=== PATIENT | female | born 1980 | race Hispanic/Latino ===

== ENCOUNTER 2017-11-24 20:25 | Emergency (ER) | payer SELFPAY ==
[2017-11-24 21:34] LABS: #Basophils 0.1 thou/uL (0.0-0.2); #Eosinphils 0.4 thou/uL (0.0-0.7); #Monocytes 0.6 thou/uL (0.11-0.59); #Neutrophils 8.3 thou/uL (1.40-6.50); %Basophils 0.7 % (0.0-1.0); %Eosinophils 2.7 % (0.0-10.0); %Lymphocytes 29.6 % (21.0-51.0); %Monocytes 4.8 % (0.0-10.0); %Neutrophils 62.2 % (42.0-75.0); Mean Corpuscular HGB CONC 34.9 g/dL (32.0-36.0); Mean Corpuscular Hemoglobin 32.3 pg (27.0-31.0); Mean Corpuscular Volume 92.5 fL (78.0-98.0); Mean Platelet Volume 7.1 fL (7.4-10.4); Platelet Count 383 thou/uL (130-400); RBC Distribution Width 12.1 % (11.5-14.5); Red Blood Cell (RBC) Count 4.34 mill/uL (4.20-5.40); White Blood Cell (WBC) Count 13.4 thou/uL (4.8-10.8)
--- NOTE | 2017-11-24 21:41 | RAD ---
SINGLE VIEW OF THE CHEST: 11/24/17 COMPARISON: 01/17/17 HISTORY: Chest pain. FINDINGS: Single view of the chest shows a normal sized cardiomediastinal silhouette. There is no evidence of c onsolidation, mass, or pleural effusion. The bones are unremarkable. IMPRESSION: No evidence of acute cardiopulmonary disease. POS: [facility]
[2017-11-24 21:57] LABS: CKMB 0.9 ng/mL (0-6.6); Troponin I Less than 0.010 ng/mL (< 0.028)
[2017-11-24 22:03] LABS: ALT (SGPT) 80 U/L (8-55); AST (SGOT) 104 U/L (5-34); Albumin 3.9 g/dL (3.5-5.0); Alkaline Phosphatase 105 U/L (40-150); Anion Gap 14 mmol/L (10-20); BUN (Urea Nitrogen) 8 mg/dL (7.0-18.7); Bilirubin, Total 0.4 mg/dL (0.2-1.2); CK (CPK) 86 U/L (29-168); Calc. Creatinine Clearance 0 mL/min (70-130); Calcium 9.4 mg/dL (7.8-10.44); Carbon Dioxide 21 mmol/L (22-29); Chloride 106 mmol/L (98-107); Estimated GFR-MDRD 90; Globulin 3.7 g/dL (2.4-3.5); Glucose 106 mg/dL (70-105); Protein, Total 7.6 g/dL (6.0-8.3); Sodium 137 mmol/L (136-145)
[2017-11-24] MEDS ORDERED: Aspirin 81 mg Enteric Coated Tablet ONE (22:10)
[2017-11-24] MEDS ORDERED: hydrOXYzine 25 MG TAB ONE (23:16)
[2017-11-25 00:14] LABS: Troponin I Less than 0.010 ng/mL (< 0.028)
== END 2017-11-25 00:33 | disposition home or self-care (01) ==
LOC: ERS 20:25
DX: R07.9 Chest pain, unspecified (principal); F41.9 Anxiety disorder, unspecified; Z87.891 Personal history of nicotine dependence
CPT/HCPCS: 36415; 71045; 80053; 82550; 82553; 84484; 85025; 85379; 93005

== ENCOUNTER 2019-07-30 21:02 | Emergency (ER) | payer SELFPAY ==
[2019-07-30] MEDS ORDERED: Lidocaine 2% PF 5 ML VIAL ONE (21:38)
[2019-07-30] MEDS ORDERED: Lidocaine 2% 10 ML INJ ONE (21:40)
== END 2019-07-30 22:06 | disposition home or self-care (01) ==
LOC: ERS 21:02
DX: S00.452A Superficial foreign body of left ear, initial encounter (principal); Z87.891 Personal history of nicotine dependence; W45.8XXA Other foreign body or object entering through skin, initial encounter
CPT/HCPCS: 69200; J2001

== ENCOUNTER 2019-08-28 12:47 | Emergency (ER) | payer OTHER, SELFPAY | END 2019-08-28 13:39 | disposition home or self-care (01) | LOC: ERS 12:47 | DX: U07.1 COVID-19 (principal); F41.9 Anxiety disorder, unspecified; F17.210 Nicotine dependence, cigarettes, uncomplicated | CPT/HCPCS: 87635; 99283; U0003 ==

== ENCOUNTER 2020-09-07 02:10 | Emergency (ER) | payer OTHER, SELFPAY ==
[2020-09-07 02:59] LABS: #Basophils 0.1 thou/uL (0.0-0.2); #Eosinphils 0.3 thou/uL (0.0-0.7); #Monocytes 0.7 thou/uL (0.11-0.59); #Neutrophils 8.2 thou/uL (1.40-6.50); %Basophils 0.6 % (0.0-1.0); %Eosinophils 2.8 % (0.0-10.0); %Lymphocytes 24.3 % (21.0-51.0); %Monocytes 5.9 % (0.0-10.0); %Neutrophils 66.5 % (42.0-75.0); Hemoglobin 12.4 g/dL (12.0-16.0); Mean Corpuscular HGB CONC 34.5 g/dL (32.0-36.0); Mean Corpuscular Hemoglobin 30.9 pg (27.0-31.0); Mean Corpuscular Volume 89.7 fL (78.0-98.0); Mean Platelet Volume 6.4 fL (7.4-10.4); Platelet Count 288 thou/uL (130-400); RBC Distribution Width 14.7 % (11.5-14.5); Red Blood Cell (RBC) Count 4.01 mill/uL (4.20-5.40); White Blood Cell (WBC) Count 12.3 thou/uL (4.8-10.8)
[2020-09-07 03:21] LABS: ALT (SGPT) 32 U/L (8-55); AST (SGOT) 80 U/L (5-34); Albumin 3.2 g/dL (3.5-5.0); Alkaline Phosphatase 124 U/L (40-110); Anion Gap 16 mmol/L (10-20); BUN (Urea Nitrogen) Less than 4 mg/dL (7.0-18.7); Bilirubin, Total 0.5 mg/dL (0.2-1.2); Calc. Creatinine Clearance 0 mL/min (70-130); Calcium 8.1 mg/dL (7.8-10.44); Carbon Dioxide 20 mmol/L (22-29); Chloride 97 mmol/L (98-107); Globulin 3.7 g/dL (2.4-3.5); Glucose 126 mg/dL (70-105); Protein, Total 6.9 g/dL (6.0-8.3); Sodium 130 mmol/L (136-145)
[2020-09-07 03:22] LABS: Acetaminophen Less than 6.0 mcg/mL (10.0-30.0); Alcohol 324 mg/dL (Less than 10); Salicylate Less than 8.0 mg/dL (15.0-30.0)
[2020-09-07 03:29] LABS: Potassium 2.8 mmol/L (3.5-5.1)
[2020-09-07] MEDS ORDERED: Lidocaine 4% Cream 5 GM TUBE w/ Tegaderm ONE (04:17)
[2020-09-07] MEDS ORDERED: Iopamidol-370 76% 500 ML 1 ML ONE (11:22)
== END 2020-09-07 07:04 | disposition home or self-care (01) ==
LOC: ERS 02:10
DX: S50.812A Abrasion of left forearm, initial encounter (principal); S40.812A Abrasion of left upper arm, initial encounter; S70.312A Abrasion, left thigh, initial encounter; F10.129 Alcohol abuse with intoxication, unspecified; Y90.8 Blood alcohol level of 240 mg/100 ml or more; I10 Essential (primary) hypertension; Z79.899 Other long term (current) drug therapy; Z87.891 Personal history of nicotine dependence; V22.4XXA Motorcycle driver injured in collision with two- or three-wheeled motor vehicle in traffic accident, initial encounter
CPT/HCPCS: 36415; 70450; 71045; 71260; 72125; 74177; 80053; 80307; 85025; G0390; Q9967

== ENCOUNTER 2022-03-02 18:20 | Emergency (ER) | payer SELFPAY ==
[2022-03-02] MEDS ORDERED: Dexameth. Sod Phosp. 10 MG/ML (CHEMO USE ONLY) ONE (19:06)
== END 2022-03-02 19:26 | disposition home or self-care (01) ==
LOC: ERS 18:20
DX: J04.0 Acute laryngitis (principal); B97.89 Other viral agents as the cause of diseases classified elsewhere; I10 Essential (primary) hypertension; Z20.822 Contact with and (suspected) exposure to COVID-19; Z87.891 Personal history of nicotine dependence
CPT/HCPCS: 87804; 99283; J1100; U0003; U0005

== ENCOUNTER 2022-10-20 05:54 | Inpatient (IN) | payer SELFPAY ==
[2022-10-20 06:32] LABS: #Eosinphils 0.2 thou/uL (0.0-0.7); #Monocytes 0.7 thou/uL (0.11-0.59); #Neutrophils 6.6 thou/uL (1.40-6.50); %Basophils 0.4 % (0.0-1.0); %Eosinophils 2.1 % (0.0-10.0); %Lymphocytes 17.9 % (21.0-51.0); %Monocytes 7.8 % (0.0-10.0); %Neutrophils 71.5 % (42.0-75.0); Hematocrit 29.4 % (36.0-47.0); Hemoglobin 9.9 g/dL (12.0-16.0); Mean Corpuscular HGB CONC 33.7 g/dL (32.0-36.0); Mean Corpuscular Hemoglobin 30.5 pg (27.0-31.0); Mean Corpuscular Volume 90.5 fl (78.0-98.0); Mean Platelet Volume 9.7 fL (7.4-10.4); Platelet Count 131 10x3/uL (130-400); RBC Distribution Width 19.6 % (11.5-14.5); Red Blood Cell (RBC) Count 3.25 mill/uL (4.20-5.40); White Blood Cell (WBC) Count 9.2 10x3/uL (4.8-10.8)
[2022-10-20 06:57] LABS: ALT (SGPT) 13 U/L (8-55); AST (SGOT) 76 U/L (5-34); Albumin 2.6 g/dL (3.5-5.0); Alkaline Phosphatase 175 U/L (40-110); Anion Gap 15 mmol/L (10-20); BUN (Urea Nitrogen) Less than 4 mg/dL (7.0-18.7); Bilirubin, Total 4.8 mg/dL (0.2-1.2); Calc. Creatinine Clearance 0 mL/min (70-130); Calcium 7.7 mg/dL (7.8-10.44); Carbon Dioxide 18 mmol/L (22-29); Chloride 106 mmol/L (98-107); Estimated GFR 115; Globulin 4.9 g/dL (2.4-3.5); Glucose 103 mg/dL (70-105); Potassium 3.7 mmol/L (3.5-5.1); Protein, Total 7.5 g/dL (6.0-8.3); Sodium 135 mmol/L (136-145)
[2022-10-20] MEDS ORDERED: Aspirin Chewable 81 MG TAB ONE (07:18)
[2022-10-20 07:57] LABS: BHCG - Serum Negative (NEGATIVE); Pregs Control Background? CLEAR/WHITE (CLR/WHITE); Pregs Control Bar Appear? YES (CONTROL BAR)
[2022-10-20] MEDS ORDERED: Ondansetron PF 4 MG/2 ML Vial ONE (08:25)
[2022-10-20 09:21] LABS: Bilirubin, Direct 2.9 mg/dL (0.1-0.3)
[2022-10-20] MEDS ORDERED: Ondansetron ODT 4 MG TAB PO PRN (10:20)
[2022-10-20] MEDS ORDERED: Lorazepam 1 MG TAB PO PRN (10:20)
[2022-10-20] MEDS ORDERED: Lorazepam 2 MG/ML VIAL IM PRN (10:20)
[2022-10-20] MEDS ORDERED: LORazepam 2 MG/ML SYR.(CARPUJECT) ONE (10:22)
[2022-10-20] MEDS ORDERED: Electrolyte Replacement Protocol 1 EACH FS SCH (10:30)
[2022-10-20] MEDS ORDERED: Iopamidol-370 76% 500 ML MDV (1 ML CHARGE) ONE (10:56)
[2022-10-20 11:07] LABS: Magnesium 1.4 mg/dL (1.6-2.6)
[2022-10-20 11:13] LABS: Troponin I 0.012 ng/mL (< 0.028)
[2022-10-20] MEDS ORDERED: Magnesium Sulfate In Water 4 GM in Premix Bag 1 BAG IVPB SCH (13:00)
[2022-10-20 14:55] VITALS: BMI 43.1
[2022-10-20] MEDS: Lorazepam 1 MG TAB PO SCH ×3 (16:40→21:15)
[2022-10-20 18:50] LABS: INR-International Normal Ratio 1.9; Prothrombin Time 22.4 sec (12.0-14.7)
[2022-10-20] MEDS: Thiamine HCl 200 MG/2 ML VIAL SLOW IVP SCH (19:25)
[2022-10-20] MEDS ORDERED: prednisoLONE 10 MG ODT TAB PO SCH (19:45)
[2022-10-21] MEDS: Lorazepam 1 MG TAB PO SCH ×4 (04:21→23:06)
[2022-10-21 08:08] LABS: #Monocytes 0.3 thou/uL (0.11-0.59); #Neutrophils 6.4 thou/uL (1.40-6.50); %Basophils 0.3 % (0.0-1.0); %Eosinophils 0.1 % (0.0-10.0); %Monocytes 3.3 % (0.0-10.0); %Neutrophils 80.5 % (42.0-75.0); Hematocrit 29.8 % (36.0-47.0); Hemoglobin 9.7 g/dL (12.0-16.0); Mean Corpuscular HGB CONC 32.6 g/dL (32.0-36.0); Mean Corpuscular Hemoglobin 30.4 pg (27.0-31.0); Mean Corpuscular Volume 93.4 fl (78.0-98.0); Mean Platelet Volume 11.2 fL (7.4-10.4); RBC Distribution Width 19.5 % (11.5-14.5); Red Blood Cell (RBC) Count 3.19 mill/uL (4.20-5.40); White Blood Cell (WBC) Count 7.9 10x3/uL (4.8-10.8)
[2022-10-21 08:31] LABS: Magnesium 2.1 mg/dL (1.6-2.6); Phosphorus 2.4 mg/dL (2.3-4.7)
[2022-10-21 08:42] LABS: Anion Gap 12 mmol/L (10-20); BUN (Urea Nitrogen) Less than 4 mg/dL (7.0-18.7); Calc. Creatinine Clearance 224 mL/min (70-130); Carbon Dioxide 17 mmol/L (22-29); Chloride 109 mmol/L (98-107); Potassium 4.3 mmol/L (3.5-5.1); Sodium 134 mmol/L (136-145)
[2022-10-21 08:43] LABS: ALT (SGPT) 13 U/L (8-55); AST (SGOT) 62 U/L (5-34); Albumin 2.4 g/dL (3.5-5.0); Alkaline Phosphatase 152 U/L (40-110); Bilirubin, Total 5.3 mg/dL (0.2-1.2); Calcium 7.8 mg/dL (7.8-10.44); Estimated GFR 119; Globulin 4.8 g/dL (2.4-3.5); Glucose 124 mg/dL (70-105); Iron 136 ug/dL (50-170); Iron Binding Capacity, Total 191 mcg/dL (265-497); Protein, Total 7.2 g/dL (6.0-8.3)
[2022-10-21 08:44] LABS: Platelet Count 121 10x3/uL (130-400)
[2022-10-21] MEDS: Folic Acid 1 MG TAB PO SCH (08:49)
[2022-10-21] MEDS: Multivit, Therapeutic 1 TAB PO SCH (08:49)
[2022-10-21] MEDS: prednisoLONE 10 MG ODT TAB PO SCH (08:49)
[2022-10-21 09:01] LABS: Ferritin 25.77 ng/mL (10-291)
[2022-10-21 09:15] LABS: HBSAB Concentration Less than 8.00 mIU/mL; HBSAg Index 0.32 S/CO (0-0.99); Hep A IgM AB Non-Reactive S/CO (NonReactive); Hep A IgM S/CO 0.34 S/CO (0-0.79); Hep B Surf AB Non-Reactive (NonReactive); Hep B Surf Ag Non-Reactive S/CO (NonReactive); Hep C IgG Ab Non-Reactive S/CO (NonReactive); Hep C Index 0.09 S/CO (0-0.79); Hepatitis B Core IgM Abs Non-Reactive S/CO (NonReactive)
[2022-10-21] MEDS ORDERED: Lorazepam 1 MG TAB PO PRN (10:20)
[2022-10-21] MEDS: Thiamine HCl 200 MG/2 ML VIAL SLOW IVP SCH (11:07)
[2022-10-21] MEDS ORDERED: Sertraline 25 MG TAB PO SCH (21:00)
[2022-10-22] MEDS: Lorazepam 1 MG TAB PO SCH (04:33)
[2022-10-22 05:26] LABS: #Eosinphils 0.2 thou/uL (0.0-0.7); #Monocytes 1.1 thou/uL (0.11-0.59); #Neutrophils 8.5 thou/uL (1.40-6.50); %Basophils 0.3 % (0.0-1.0); %Eosinophils 1.2 % (0.0-10.0); %Lymphocytes 20.9 % (21.0-51.0); %Monocytes 8.6 % (0.0-10.0); %Neutrophils 68.5 % (42.0-75.0); Hematocrit 27.3 % (36.0-47.0); Mean Corpuscular Volume 94.1 fl (78.0-98.0); Mean Platelet Volume 9.5 fL (7.4-10.4); Platelet Count 138 10x3/uL (130-400); White Blood Cell (WBC) Count 12.4 10x3/uL (4.8-10.8)
[2022-10-22 05:41] LABS: PTT 42.3 sec (22.9-36.1); Prothrombin Time 23.6 sec (12.0-14.7)
[2022-10-22 06:01] LABS: ALT (SGPT) 12 U/L (8-55); AST (SGOT) 52 U/L (5-34); Albumin 2.3 g/dL (3.5-5.0); Alkaline Phosphatase 145 U/L (40-110); Anion Gap 10 mmol/L (10-20); BUN (Urea Nitrogen) 4 mg/dL (7.0-18.7); Bilirubin, Total 4.6 mg/dL (0.2-1.2); Calc. Creatinine Clearance 183 mL/min (70-130); Carbon Dioxide 21 mmol/L (22-29); Chloride 109 mmol/L (98-107); Estimated GFR 113; Globulin 4.7 g/dL (2.4-3.5); Glucose 97 mg/dL (70-105); Magnesium 1.6 mg/dL (1.6-2.6); Phosphorus 2.4 mg/dL (2.3-4.7); Potassium 3.5 mmol/L (3.5-5.1); Sodium 136 mmol/L (136-145)
[2022-10-22 07:10] VITALS: BP 128/71; TEMP 98.3
[2022-10-22] MEDS ORDERED: Potassium Bicarbonate/Cit Ac 20 MEQ TAB PO SCH (08:00)
[2022-10-22] MEDS ORDERED: Magnesium 2 GM/50 ML(in water) 2 GM in Premix Bag 1 BAG IVPB SCH (08:00)
[2022-10-22] MEDS: Multivit, Therapeutic 1 TAB PO SCH (08:31)
[2022-10-22] MEDS: prednisoLONE 10 MG ODT TAB PO SCH (08:31)
[2022-10-22] MEDS: Folic Acid 1 MG TAB PO SCH (08:31)
[2022-10-22] MEDS ORDERED: Lorazepam 1 MG TAB PO PRN (10:20)
[2022-10-22] MEDS ORDERED: Lorazepam 0.5 MG TAB PO SCH (10:30)
[2022-10-22] MEDS: Thiamine HCl 200 MG/2 ML VIAL SLOW IVP SCH (12:09)
[2022-10-22 14:17] LABS: Alpha-1-Antitrypsin 153 mg/dL (101-187)
[2022-10-22 16:28] LABS: ANA Symphony (Qualitative) POSITIVE (Negative); ANA Symphony (Quantitative) 5.1 Ratio (< 0.7 Negative); CENP IgG Antibody 1.6 EliAU/mL (<7 Negative); EliA Vaculitis New Method **** NEW METHOD ****; Jo-1 IgG Antibody 0.7 EliAU/mL (<7 Negative); Mitochondrial Ab 1.7 U/mL (<4 Negative); RNP70 IgG Antibody 3.9 EliAU/mL (<7 Negative); SSB/La IgG Antibody 0.7 EliAU/mL (<7 Negative); Scleroderma-70 IgG Antibody 1.6 EliAU/mL (<7 Negative); Smith D IgG Antibody 5.3 EliAU/mL (<7 Negative); dsDNA IgG Antibody 1.9 IU/mL (<10 Negative)
[2022-10-23] MEDS ORDERED: Thiamine 100 MG TAB PO SCH (09:00)
[2022-10-23] MEDS ORDERED: Lorazepam 0.5 MG TAB PO PRN (10:20)
[2022-10-23 12:13] LABS: Smooth Muscle Total ABS 35 Units (0-19)
== END 2022-10-22 14:22 | disposition home or self-care (01) | DRG 897 ==
LOC: ERS 05:54 → ERHOLD 10:04 → 2SW 14:48
PROVIDERS: ADMIT Internal Medicine; ATTEND Family Medicine
DX: F10.231 Alcohol dependence with withdrawal delirium (principal); Z68.41 Body mass index [BMI] 40.0-44.9, adult; K76.6 Portal hypertension; I10 Essential (primary) hypertension; F41.9 Anxiety disorder, unspecified; K74.60 Unspecified cirrhosis of liver; K70.10 Alcoholic hepatitis without ascites; E66.9 Obesity, unspecified; D69.6 Thrombocytopenia, unspecified; K80.20 Calculus of gallbladder without cholecystitis without obstruction; Z88.5 Allergy status to narcotic agent
CPT/HCPCS: 36415; 71045; 71275; 74177; 76705; 80053; 80074; 82103; 82105; 82248; 82728; 83516; 83540; 83550; 83690; 83735; 83880; 84100; 84443; 84484; 84703; 85025; 85379; 85610; 85730; 86015; 86038; 86225; 86235; 86706; 86708; 93005; 94760; 96361; 96374; 96375; J1650; J2060; J2405; J3411; J3475; Q9967

== ENCOUNTER 2023-05-11 13:36 | Emergency (ER) | payer OTHER, SELFPAY ==
[2023-05-11] MEDS ORDERED: fentaNYL 50 mcg/mL 1 mL Vial ONE (15:47)
[2023-05-11 15:54] LABS: #Eosinphils 0.3 thou/uL (0.0-0.7); #Monocytes 0.6 thou/uL (0.11-0.59); #Neutrophils 4.4 thou/uL (1.40-6.50); %Basophils 0.6 % (0.0-1.0); %Eosinophils 3.8 % (0.0-10.0); %Lymphocytes 21.7 % (21.0-51.0); %Neutrophils 64.5 % (42.0-75.0); Hematocrit 25.6 % (36.0-47.0); Hemoglobin 8.4 g/dL (12.0-16.0); Mean Corpuscular HGB CONC 32.8 g/dL (32.0-36.0); Mean Corpuscular Hemoglobin 27.9 pg (27.0-31.0); Mean Platelet Volume 9.6 fL (7.4-10.4); RBC Distribution Width 24.7 % (11.5-14.5); Red Blood Cell (RBC) Count 3.01 mill/uL (4.20-5.40); White Blood Cell (WBC) Count 6.8 10x3/uL (4.8-10.8)
[2023-05-11 16:02] LABS: Platelet Count 113 10x3/uL (130-400)
[2023-05-11 16:19] LABS: BHCG - Serum Negative (NEGATIVE); Pregs Control Background? CLEAR/WHITE (CLR/WHITE); Pregs Control Bar Appear? YES (CONTROL BAR)
[2023-05-11] MEDS ORDERED: Ondansetron PF 4 MG/2 ML Vial ONE ×2 (16:27→16:48)
[2023-05-11 16:36] LABS: ALT (SGPT) 15 U/L (8-55); AST (SGOT) 67 U/L (5-34); Albumin 2.5 g/dL (3.5-5.0); Alkaline Phosphatase 157 U/L (40-110); Anion Gap 15 mmol/L (10-20); BUN (Urea Nitrogen) 4 mg/dL (7.0-18.7); Bilirubin, Total 3.6 mg/dL (0.2-1.2); Calc. Creatinine Clearance 0 mL/min (70-130); Calcium 7.7 mg/dL (7.8-10.44); Carbon Dioxide 18 mmol/L (22-29); Chloride 110 mmol/L (98-107); Estimated GFR 113; Globulin 4.9 g/dL (2.4-3.5); Glucose 104 mg/dL (70-105); Potassium 4.9 mmol/L (3.5-5.1); Protein, Total 7.4 g/dL (6.0-8.3); Sodium 138 mmol/L (136-145)
== END 2023-05-11 18:36 | disposition home or self-care (01) ==
LOC: ERS 13:36
DX: S40.022A Contusion of left upper arm, initial encounter (principal); S80.12XA Contusion of left lower leg, initial encounter; V69.9XXA Occupant (driver) (passenger) of heavy transport vehicle injured in unspecified traffic accident, initial encounter; J18.9 Pneumonia, unspecified organism; W22.11XA Striking against or struck by driver side automobile airbag, initial encounter; I10 Essential (primary) hypertension; Z55.6 Problems related to health literacy
CPT/HCPCS: 70450; 71260; 72125; 74177; 80053; 84703; 85025; 93005; 96361; 96374; 96375; J2405; J3010

== ENCOUNTER 2024-02-19 15:20 | Inpatient (IN) | payer OTHER, SELFPAY ==
[~2024-02-19 15:20] MED LIST: Iopamidol-370 76% 500 ML MDV (1 ML CHARGE) ONE
[2024-02-19] MEDS ORDERED: Ondansetron PF 4 MG/2 ML Vial ONE (15:42)
[2024-02-19 16:12] LABS: BHCG - Serum Negative (NEGATIVE); Pregs Control Background? CLEAR/WHITE (CLR/WHITE); Pregs Control Bar Appear? YES (CONTROL BAR)
[2024-02-19 16:37] LABS: Pregnancy Test - Urine (BHCG) Negative (Negative); Specific Gravity 1.021 (1.002-1.036)
[2024-02-19 16:38] LABS: Pregu Control Background? CLEAR/WHITE (CLR/WHITE); Pregu Control Bar Appear? YES (CONTROL BAR)
[2024-02-19 16:53] LABS: #Basophils 0.04 10x3/uL (0.0-0.2); %Basophils 0.6 % (0.0-1.0); %Eosinophils 1.8 % (0.0-10.0); %Lymphocytes 21.1 % (21.0-51.0); %Monocytes 17.4 % (0.0-10.0); %Neutrophils 58.4 % (42.0-75.0); Hematocrit 25.5 % (36.0-47.0); Hemoglobin 8.2 g/dL (12.0-16.0); Mean Corpuscular HGB CONC 32.2 g/dL (32.0-36.0); Mean Corpuscular Hemoglobin 32.5 pg (27.0-31.0); Mean Corpuscular Volume 101.2 fL (78.0-98.0); Mean Platelet Volume 10.8 fL (7.4-10.4); Platelet Count 61 10x3/uL (130-400); RBC Distribution Width 21.3 % (11.5-14.5); Red Blood Cell (RBC) Count 2.52 mill/uL (4.20-5.40)
[2024-02-19 16:55] LABS: Anisocytosis MODERATE=16-30 cells HPF (0-5); Burr Cells SLIGHT = 2-5 cells HPF (0-1); Macrocytosis MODERATE=16-30 cells HPF (0-5); Ovalocytes SLIGHT = 2-5 cells HPF (0-1); Platelet Adequacy Comment Significant Decrease; Polychromasia MODERATE = 3-4 cells HPF (0-2); Target Cells SLIGHT = 2-5 cells HPF (0-1)
[2024-02-19 16:57] LABS: Albumin 1.6 g/dL (3.5-5.0); Chloride 101 mmol/L (98-107); Sodium 134 mmol/L (136-145)
[2024-02-19 16:58] LABS: Glucose 80 mg/dL (70-105)
[2024-02-19 16:59] LABS: Protein, Total 6.6 g/dL (6.0-8.3)
[2024-02-19 17:00] LABS: Anion Gap 10 mmol/L (10-20); Carbon Dioxide 25 mmol/L (22-29)
[2024-02-19 17:01] LABS: Alkaline Phosphatase 118 U/L (40-110); Bilirubin, Total 11.1 mg/dL (0.2-1.2)
[2024-02-19 17:02] LABS: BUN (Urea Nitrogen) 6 mg/dL (7.0-18.7); Calc. Creatinine Clearance 0 mL/min (70-130); Estimated GFR 111; Lipase 52 U/L (8-78)
[2024-02-19 17:04] LABS: ALT (SGPT) 18 U/L (8-55); AST (SGOT) 71 U/L (5-34)
[2024-02-19 17:12] LABS: Calcium 6.9 mg/dL (7.8-10.44); Potassium 2.4 mmol/L (3.5-5.1)
[2024-02-19 17:12] LABS: Bacteria/HPF 4+ HPF (None Seen); CAUTI Indications for Culture Dysuria,urgency,freq; Clarity Turbid (Clear); Glucose, Urine (Dipstick) Normal (Negative); Ketone, Urine 60 mg/dL (Negative); Leukocyte 500 Leu/uL (Negative); Nitrite Negative (Negative); Protein, Urine (Dipstick) 70 mg/dL (Neg-Trace); Specific Gravity, Urine 1.021 (1.002-1.036); Squamous Epithelial Greater than 50 HPF (0-3); Urobilinogen Greater than 12 mg/dL (Less than 2); WBC/HPF Greater than 50 HPF (0-3)
[2024-02-19 17:15] LABS: Bilirubin Unable to Interpret (Negative); Blood, Urine Unable to Interpret (Negative)
[2024-02-19 17:17] LABS: Urine Culture Reflex Yes Yes
[2024-02-19] MEDS ORDERED: Doxycycline 100 MG CAP ONE (18:02)
[2024-02-19] MEDS ORDERED: Potassium Chloride 20 MEQ TAB ONE (18:02)
[2024-02-19] MEDS ORDERED: cefTRIAXone (ROCEPHIN) 1 GM VIAL ONE (18:02)
[2024-02-19] MEDS ORDERED: metroNIDAZOLE 500 MG (100 mL) BAG ONE (18:02)
[2024-02-19] MEDS ORDERED: Sterile Water 10 ML ONE (18:02)
[2024-02-19 18:03] LABS: Magnesium 1.6 mg/dL (1.6-2.6)
[2024-02-19] MEDS ORDERED: Senokot S 8.6-50 MG TAB PO PRN (18:57)
[2024-02-19] MEDS ORDERED: Bisacodyl 5 MG TAB PO PRN (18:57)
[2024-02-19] MEDS ORDERED: Calcium Carbonate 500 MG ChewTAB PO PRN (18:57)
[2024-02-19] MEDS ORDERED: Acetaminophen 325 MG TAB PO PRN (18:57)
[2024-02-19] MEDS ORDERED: Ondansetron PF 4 MG/2 ML Vial IVP PRN (18:57)
[2024-02-19] MEDS: Thiamine 100 MG TAB PO SCH (21:19)
[2024-02-19] MEDS: Lactulose 20 GM (30 mL) UDCUP PO SCH (21:24)
[2024-02-19] MEDS: Potassium Chloride 40 MEQ in Sodium Chloride 0.9% 250 ML 250 ML IVPB SCH (22:21)
[2024-02-19] MEDS: Docusate 100 MG CAP PO SCH (22:21)
[2024-02-19 22:43] VITALS: BMI 46.1
[2024-02-19 23:00] LABS: Potassium 2.8 mmol/L (3.5-5.1)
[2024-02-20] MEDS: Magnesium 2 GM/50 ML(in water) 2 GM in Premix 1 BAG IVPB SCH (01:46)
[2024-02-20] MEDS: Potassium Chloride 20 MEQ TAB PO SCH ×2 (01:46→04:13)
[2024-02-20] MEDS: metroNIDAZOLE 500 MG in Premix 1 BAG IVPB SCH (03:13)
[2024-02-20 03:36] LABS: #Basophils 0.04 10x3/uL (0.0-0.2); %Basophils 0.6 % (0.0-1.0); %Eosinophils 2.4 % (0.0-10.0); %Lymphocytes 20.4 % (21.0-51.0); %Monocytes 19.9 % (0.0-10.0); %Neutrophils 55.9 % (42.0-75.0); Mean Corpuscular HGB CONC 31.8 g/dL (32.0-36.0); Mean Corpuscular Hemoglobin 32.6 pg (27.0-31.0); Mean Corpuscular Volume 102.3 fL (78.0-98.0); Mean Platelet Volume 10.8 fL (7.4-10.4); Platelet Count 63 10x3/uL (130-400); RBC Distribution Width 21.4 % (11.5-14.5); Red Blood Cell (RBC) Count 2.15 mill/uL (4.20-5.40)
[2024-02-20 03:56] LABS: ALT (SGPT) 18 U/L (8-55); AST (SGOT) 71 U/L (5-34); Albumin 1.5 g/dL (3.5-5.0); Alkaline Phosphatase 108 U/L (40-110); Anion Gap 11 mmol/L (10-20); BUN (Urea Nitrogen) 7 mg/dL (7.0-18.7); Bilirubin, Total 11.6 mg/dL (0.2-1.2); Calc. Creatinine Clearance 176 mL/min (70-130); Calcium 6.8 mg/dL (7.8-10.44); Carbon Dioxide 24 mmol/L (22-29); Chloride 102 mmol/L (98-107); Estimated GFR 110; Globulin 4.7 g/dL (2.4-3.5); Glucose 101 mg/dL (70-105); Potassium 2.7 mmol/L (3.5-5.1); Protein, Total 6.2 g/dL (6.0-8.3); Sodium 134 mmol/L (136-145)
[2024-02-20] MEDS ORDERED: FLU (Fluarix Triv) TS24-25(6MOS UP)/PF 45 MCG/0.5 ML Syringe IM ONE (09:00)
[2024-02-20] MEDS: Doxycycline 100 MG CAP PO SCH (09:20)
[2024-02-20] MEDS: Folic Acid 1 MG TAB PO SCH (09:20)
[2024-02-20] MEDS: cefTRIAXone\\ROCEPHIN 1 GM in Sodium Chloride 0.9% 100 ML IVPB SCH (09:21)
[2024-02-20 10:34] LABS: INR-International Normal Ratio 3.5
[2024-02-20 10:35] LABS: Anion Gap 12 mmol/L (10-20); BUN (Urea Nitrogen) 7 mg/dL (7.0-18.7); Calc. Creatinine Clearance 169 mL/min (70-130); Carbon Dioxide 22 mmol/L (22-29); Chloride 102 mmol/L (98-107); Estimated GFR 109; Glucose 109 mg/dL (70-105); Magnesium 1.9 mg/dL (1.6-2.6); Potassium 3.3 mmol/L (3.5-5.1); Sodium 133 mmol/L (136-145)
[2024-02-20] MEDS: Spironolactone 25 MG TAB PO SCH (17:51)
[2024-02-21 05:07] LABS: #Basophils 0.03 10x3/uL (0.0-0.2); %Basophils 0.4 % (0.0-1.0); %Eosinophils 3.6 % (0.0-10.0); %Lymphocytes 19.8 % (21.0-51.0); %Monocytes 16.7 % (0.0-10.0); %Neutrophils 58.7 % (42.0-75.0); Hematocrit 22.4 % (36.0-47.0); Hemoglobin 7.1 g/dL (12.0-16.0); Mean Corpuscular HGB CONC 31.7 g/dL (32.0-36.0); Mean Corpuscular Hemoglobin 32.3 pg (27.0-31.0); Mean Corpuscular Volume 101.8 fL (78.0-98.0); Mean Platelet Volume 10.2 fL (7.4-10.4); Platelet Count 63 10x3/uL (130-400); RBC Distribution Width 21.6 % (11.5-14.5)
[2024-02-21 05:16] LABS: ALT (SGPT) 19 U/L (8-55); AST (SGOT) 84 U/L (5-34); Albumin 1.6 g/dL (3.5-5.0); Alkaline Phosphatase 117 U/L (40-110); Anion Gap 10 mmol/L (10-20); BUN (Urea Nitrogen) 7 mg/dL (7.0-18.7); Bilirubin, Total 11.4 mg/dL (0.2-1.2); Calc. Creatinine Clearance 171 mL/min (70-130); Carbon Dioxide 23 mmol/L (22-29); Chloride 103 mmol/L (98-107); Estimated GFR 109; Globulin 4.8 g/dL (2.4-3.5); Glucose 94 mg/dL (70-105); Potassium 2.7 mmol/L (3.5-5.1); Protein, Total 6.4 g/dL (6.0-8.3); Sodium 133 mmol/L (136-145)
[2024-02-21] MEDS: Potassium Chloride 20 MEQ TAB PO SCH (07:28)
[2024-02-21] MEDS ORDERED: Potassium Chloride 20 MEQ TAB PO SCH (08:00)
[2024-02-21] MEDS ORDERED: Furosemide 20 MG TAB PO SCH (09:00)
[2024-02-21] MEDS: Magnesium Oxide 400 MG TAB PO SCH (09:27)
[2024-02-21] MEDS: hydrOXYzine 25 MG TAB PO PRN (10:12)
[2024-02-21 17:43] VITALS: BMI 46.1
[2024-02-22 04:46] LABS: #Basophils 0.03 10x3/uL (0.0-0.2); %Basophils 0.4 % (0.0-1.0); %Eosinophils 4.1 % (0.0-10.0); %Monocytes 16.5 % (0.0-10.0); Hematocrit 20.9 % (36.0-47.0); Hemoglobin 6.7 g/dL (12.0-16.0); Mean Corpuscular HGB CONC 32.1 g/dL (32.0-36.0); Mean Platelet Volume 10.5 fL (7.4-10.4); Platelet Count 68 10x3/uL (130-400); RBC Distribution Width 20.9 % (11.5-14.5); Red Blood Cell (RBC) Count 2.03 mill/uL (4.20-5.40)
[2024-02-22 04:53] LABS: ALT (SGPT) 21 U/L (8-55); AST (SGOT) 88 U/L (5-34); Albumin 1.5 g/dL (3.5-5.0); Alkaline Phosphatase 117 U/L (40-110); Anion Gap 11 mmol/L (10-20); BUN (Urea Nitrogen) 7 mg/dL (7.0-18.7); Bilirubin, Total 11.3 mg/dL (0.2-1.2); Calc. Creatinine Clearance 182 mL/min (70-130); Calcium 7.1 mg/dL (7.8-10.44); Carbon Dioxide 22 mmol/L (22-29); Chloride 103 mmol/L (98-107); Estimated GFR 111; Globulin 4.8 g/dL (2.4-3.5); Glucose 100 mg/dL (70-105); Magnesium 1.8 mg/dL (1.6-2.6); Potassium 3.3 mmol/L (3.5-5.1); Protein, Total 6.3 g/dL (6.0-8.3); Sodium 133 mmol/L (136-145)
[2024-02-22 06:23] LABS: GC by PCR, Vaginal Swab *Indeterminate (NotDetected)
[2024-02-22 10:57] LABS: Hematocrit 22.7 % (36.0-47.0); Hemoglobin 7.1 g/dL (12.0-16.0)
[2024-02-22 11:27] VITALS: BP 106/52; TEMP 98.5
== END 2024-02-22 14:45 | disposition home or self-care (01) | DRG 758 ==
LOC: SUATTDRO 15:20 → ERS 15:20 → OBS 18:48 → OBSVTOIN 18:48 → OBS 20:27
PROVIDERS: ADMIT Internal Medicine; ATTEND Internal Medicine
DX: A59.01 Trichomonal vulvovaginitis (principal); D68.9 Coagulation defect, unspecified; Z68.42 Body mass index [BMI] 45.0-49.9, adult; E87.1 Hypo-osmolality and hyponatremia; N39.0 Urinary tract infection, site not specified; K70.30 Alcoholic cirrhosis of liver without ascites; E87.6 Hypokalemia; D69.6 Thrombocytopenia, unspecified; E88.09 Other disorders of plasma-protein metabolism, not elsewhere classified; K59.00 Constipation, unspecified; I10 Essential (primary) hypertension; F10.10 Alcohol abuse, uncomplicated; E83.51 Hypocalcemia; D64.9 Anemia, unspecified; Z88.5 Allergy status to narcotic agent; Z87.891 Personal history of nicotine dependence; K70.10 Alcoholic hepatitis without ascites; Z71.41 Alcohol abuse counseling and surveillance of alcoholic; E66.01 Morbid (severe) obesity due to excess calories
CPT/HCPCS: 36415; 74177; 80053; 81001; 81025; 82140; 82533; 83690; 83735; 84145; 84703; 85025; 85610; 86141; 87040; 87077; 87086; 87186; 87480; 87510; 87591; 87660; 93005; 96374; 96375; G0378; J0696; J2405; J3475; J3480; J7050; Q9967

== ENCOUNTER 2024-03-07 01:44 | Inpatient (IN) | payer OTHER ==
[2024-03-07] MEDS ORDERED: Albumin 25% 200 ML ONE (02:10)
[2024-03-07] MEDS ORDERED: cefTRIAXone (ROCEPHIN) 2 GM VIAL ONE (02:10)
[2024-03-07] MEDS ORDERED: Sodium Chloride 0.9% 100 ML ONE (02:10)
[2024-03-07 02:12] LABS: #Basophils 0.05 10x3/uL (0.0-0.2); %Basophils 0.4 % (0.0-1.0); %Lymphocytes 13.8 % (21.0-51.0); %Monocytes 11.9 % (0.0-10.0); %Neutrophils 70.8 % (42.0-75.0); Hematocrit 21.6 % (36.0-47.0); Hemoglobin 7.1 g/dL (12.0-16.0); Mean Corpuscular HGB CONC 32.9 g/dL (32.0-36.0); Mean Corpuscular Hemoglobin 32.9 pg (27.0-31.0); Mean Platelet Volume 9.6 fL (7.4-10.4); Platelet Count 125 10x3/uL (130-400); RBC Distribution Width 20.2 % (11.5-14.5); Red Blood Cell (RBC) Count 2.16 mill/uL (4.20-5.40)
[2024-03-07 02:21] LABS: ALT (SGPT) 30 U/L (8-55); AST (SGOT) 115 U/L (5-34); Albumin 1.4 g/dL (3.5-5.0); Alkaline Phosphatase 99 U/L (40-110); Anion Gap 15 mmol/L (10-20); BHCG - Serum Negative (NEGATIVE); BUN (Urea Nitrogen) 39 mg/dL (7.0-18.7); Bilirubin, Total 23.6 mg/dL (0.2-1.2); Calc. Creatinine Clearance 0 mL/min (70-130); Calcium 8.2 mg/dL (7.8-10.44); Carbon Dioxide 16 mmol/L (22-29); Chloride 95 mmol/L (98-107); Estimated GFR 5; Globulin 5.1 g/dL (2.4-3.5); Glucose 92 mg/dL (70-105); Lipase 43 U/L (8-78); Magnesium 1.9 mg/dL (1.6-2.6); Potassium 4.3 mmol/L (3.5-5.1); Pregs Control Background? CLEAR/WHITE (CLR/WHITE); Pregs Control Bar Appear? YES (CONTROL BAR); Protein, Total 6.5 g/dL (6.0-8.3); Sodium 122 mmol/L (136-145)
[2024-03-07 02:23] LABS: PTT 102.9 sec (22.9-36.1)
[2024-03-07 02:26] LABS: INR-International Normal Ratio 6.1
[2024-03-07 03:03] LABS: Troponin I 0.062 ng/mL (< 0.028)
[2024-03-07] MEDS ORDERED: NOREPINEPHRINE 8 MG/250 ML-D5W 250 ML ONE (05:14)
[2024-03-07] MEDS ORDERED: Ondansetron PF 4 MG/2 ML Vial ONE (06:07)
[2024-03-07 06:39] LABS: Bacteria/HPF None Seen HPF (None Seen); Bilirubin Negative (Negative); Blood, Urine 3+ (Negative); CAUTI Indications for Culture Pelvic or flank pain; Clarity Turbid (Clear); Glucose, Urine (Dipstick) Normal (Negative); Ketone, Urine Negative (Negative); Leukocyte Negative Leu/uL (Negative); Nitrite Negative (Negative); Protein, Urine (Dipstick) 20 mg/dL (Neg-Trace); RBC/HPF 0-3 HPF (0-3); Specific Gravity, Urine 1.001 (1.002-1.036); Squamous Epithelial None Seen HPF (0-3); Urobilinogen Normal mg/dL (Less than 2); WBC/HPF 0-3 HPF (0-3); pH, Urine 5.5 (5.0-9.0)
[2024-03-07] MEDS ORDERED: fentaNYL 50 mcg/mL 1 mL Vial ONE (06:39)
[2024-03-07 06:41] LABS: Acetaminophen Less than 10 mcg/mL (Less than 10); Alcohol Less than 10.0 mg/dL (Less than 10); Salicylate Less than 8.0 mg/dL (Less than 8.0)
[2024-03-07 06:43] LABS: Urine Culture Reflex No No
[2024-03-07] MEDS ORDERED: Sodium Chloride 0.9% 1,000 ML IV SCH (07:00)
[2024-03-07] MEDS: Phytonadione 5 MG TAB PO SCH (08:27)
[2024-03-07] MEDS: Octreotide Acetate 1,250 MCG in Sodium Chloride 0.9% 250 ML 250 ML IVPB SCH (08:27)
[2024-03-07] MEDS: Albumin 25% 25 GM (100 mL) BOT IVPB SCH (08:28)
[2024-03-07] MEDS: Dextrose 5 %-0.45 % NaCl 1,000 ML IV SCH (08:30)
[2024-03-07] MEDS: Cefepime 1 GM in Sodium Chloride 0.9% 100 ML IVPB SCH (08:52)
[2024-03-07] MEDS: Pantoprazole 40 MG VIAL IVP SCH (08:53)
[2024-03-07] MEDS: Lactulose 20 GM (30 mL) UDCUP PO SCH (08:53)
[2024-03-07] MEDS: prednisoLONE 10 MG ODT TAB PO SCH (09:45)
[2024-03-07 10:16] LABS: Lactic Acid 2.34 mmol/L (0.5-2.2)
[2024-03-07 10:20] LABS: Anion Gap 40 mmol/L (10-20); BUN (Urea Nitrogen) 31 mg/dL (7.0-18.7); Calc. Creatinine Clearance 0 mL/min (70-130); Calcium 7.9 mg/dL (7.8-10.44); Carbon Dioxide 14 mmol/L (22-29); Chloride 90 mmol/L (98-107); Estimated GFR 9; Glucose 167 mg/dL (70-105); Potassium 4.4 mmol/L (3.5-5.1); Sodium 140 mmol/L (136-145)
[2024-03-07] MEDS: Multivitamin W/ Minerals 1 TAB PO SCH (10:54)
[2024-03-07] MEDS: Thiamine 100 MG TAB PO SCH (10:54)
[2024-03-07] MEDS: Folic Acid 1 MG TAB PO SCH (10:54)
[2024-03-07] MEDS: Furosemide 40 MG (4 mL) VIAL SLOW IVP SCH (10:54)
[2024-03-07 11:21] LABS: INR-International Normal Ratio 3.5; PTT 70.6 sec (22.9-36.1); Prothrombin Time 35.4 sec (12.0-14.7)
[2024-03-07 11:45] LABS: HBsAg Index 0.25 S/CO (0-0.99); Hep A IgM AB NONREACTIVE (NonReactive); Hep A IgM S/CO 0.16 S/CO (0-0.79); Hep B Core IgM Index 0.14 S/CO (0-0.79); Hep B Surf Ag NONREACTIVE S/CO (NonReactive); Hep C IgG Ab NONREACTIVE S/CO (NonReactive); Hep C Index 0.19 S/CO (0-0.79); Hepatitis B Core IgM Abs NONREACTIVE S/CO (NonReactive)
[2024-03-07] MEDS: Midodrine HCl 5 MG TAB PO SCH (14:13)
[2024-03-07] MEDS: Dextrose 5% in Water 1,000 ML IV SCH (16:10)
[2024-03-07 16:37] LABS: Anion Gap 17 mmol/L (10-20); BUN (Urea Nitrogen) 34 mg/dL (7.0-18.7); BUN (Urea Nitrogen) 35 mg/dL (7.0-18.7); Calc. Creatinine Clearance 15 mL/min (70-130); Calcium 8.3 mg/dL (7.8-10.44); Calcium 8.4 mg/dL (7.8-10.44); Carbon Dioxide 14 mmol/L (22-29); Carbon Dioxide 15 mmol/L (22-29); Chloride 97 mmol/L (98-107); Chloride 98 mmol/L (98-107); Estimated GFR 6; Glucose 119 mg/dL (70-105); Glucose 120 mg/dL (70-105); Potassium 5.1 mmol/L (3.5-5.1); Sodium 124 mmol/L (136-145)
[2024-03-07] MEDS: Sodium Bicarb 50 MEQ/50 ML Abboject 8.4% SYRINGE IVP SCH (20:35)
[2024-03-07] MEDS ORDERED: Sodium Bicarbonate 150 MEQ in Dextrose 5% in Water 1,000 ML IV SCH (21:30)
[2024-03-07] MEDS: Sodium Bicarbonate 75 MEQ in Dextrose 5% in Water 1,000 ML IV SCH (22:09)
[2024-03-08 06:47] LABS: #Basophils Less than 0.03 10x3/uL (0.0-0.2); %Basophils 0.3 % (0.0-1.0); %Eosinophils 3.4 % (0.0-10.0); %Lymphocytes 13.1 % (21.0-51.0); %Monocytes 11.2 % (0.0-10.0); %Neutrophils 71.2 % (42.0-75.0); Hematocrit 19.3 % (36.0-47.0); Hemoglobin 6.1 g/dL (12.0-16.0); Mean Corpuscular HGB CONC 31.6 g/dL (32.0-36.0); Mean Corpuscular Hemoglobin 32.6 pg (27.0-31.0); Mean Corpuscular Volume 103.2 fL (78.0-98.0); Mean Platelet Volume 9.9 fL (7.4-10.4); Platelet Count 63 10x3/uL (130-400); RBC Distribution Width 21.8 % (11.5-14.5); Red Blood Cell (RBC) Count 1.87 mill/uL (4.20-5.40)
[2024-03-08 06:57] LABS: INR-International Normal Ratio 5.9; Prothrombin Time 53.2 sec (12.0-14.7)
[2024-03-08 06:58] LABS: Phosphorus 7.4 mg/dL (2.3-4.7)
[2024-03-08 07:00] LABS: Immunoglob - G (Total IgG) 2451 mg/dL (552-1631); Immunoglob - M (Total IgM) 217 mg/dL (33-293)
[2024-03-08 07:32] LABS: ALT (SGPT) 20 U/L (8-55); AST (SGOT) 71 U/L (5-34); Albumin 3.3 g/dL (3.5-5.0); Alkaline Phosphatase 68 U/L (40-110); Anion Gap 19 mmol/L (10-20); BUN (Urea Nitrogen) 40 mg/dL (7.0-18.7); Calc. Creatinine Clearance 13 mL/min (70-130); Calcium 8.5 mg/dL (7.8-10.44); Carbon Dioxide 16 mmol/L (22-29); Chloride 94 mmol/L (98-107); Estimated GFR 5; Globulin 3.2 g/dL (2.4-3.5); Glucose 113 mg/dL (70-105); Lipase 48 U/L (8-78); Magnesium 1.9 mg/dL (1.6-2.6); Potassium 4.7 mmol/L (3.5-5.1); Protein, Total 6.5 g/dL (6.0-8.3); Sodium 124 mmol/L (136-145)
[2024-03-08] MEDS: Cyanocobalamin (Vitamin B-12) 1,000 MCG TAB PO SCH (08:08)
[2024-03-08] MEDS: Sodium Bicarbonate 150 MEQ in Dextrose 5% in Water 1,000 ML IV SCH (10:53)
[2024-03-08 13:07] LABS: Hemoglobin 6.7 g/dL (12.0-16.0)
[2024-03-08 13:19] LABS: INR-International Normal Ratio 3.7; Prothrombin Time 36.7 sec (12.0-14.7)
[2024-03-08 13:20] LABS: PTT 63.1 sec (22.9-36.1)
[2024-03-08] MEDS: Epoetin (ESRD) 20,000 UNITS/ML MDV SC SCH (16:05)
[2024-03-08] MEDS: EPOETIN ALFA-EPBX (ESRD) 10,000 UNITS/ML VIAL SC SCH (16:21)
[2024-03-08] MEDS: Morphine 2 MG/ML VIAL SLOW IVP PRN (16:39)
[2024-03-08 19:03] LABS: Anion Gap 19 mmol/L (10-20); BUN (Urea Nitrogen) 40 mg/dL (7.0-18.7); Calc. Creatinine Clearance 13 mL/min (70-130); Calcium 8.6 mg/dL (7.8-10.44); Carbon Dioxide 16 mmol/L (22-29); Chloride 95 mmol/L (98-107); Estimated GFR 5; Glucose 127 mg/dL (70-105); Potassium 4.6 mmol/L (3.5-5.1); Sodium 125 mmol/L (136-145)
[2024-03-08 19:09] LABS: #Basophils Less than 0.03 10x3/uL (0.0-0.2); %Basophils 0.3 % (0.0-1.0); %Eosinophils 3.2 % (0.0-10.0); %Lymphocytes 10.7 % (21.0-51.0); %Monocytes 9.9 % (0.0-10.0); %Neutrophils 75.1 % (42.0-75.0); Hematocrit 20.6 % (36.0-47.0); Hemoglobin 6.9 g/dL (12.0-16.0); Mean Corpuscular HGB CONC 33.5 g/dL (32.0-36.0); Mean Corpuscular Hemoglobin 32.9 pg (27.0-31.0); Mean Corpuscular Volume 98.1 fL (78.0-98.0); Platelet Count 51 10x3/uL (130-400); RBC Distribution Width 21.3 % (11.5-14.5)
[2024-03-08 19:31] LABS: Hep C Index 0.15 S/CO (0-0.79)
[2024-03-08 20:02] LABS: HBSAB Concentration 10.69 mIU/mL; Hep B Surf AB GRAYZONE (NonReactive)
[2024-03-08 20:33] LABS: INR-International Normal Ratio 3.1; Prothrombin Time 31.8 sec (12.0-14.7)
[2024-03-09] MEDS: NOREPINEPHRINE 8 MG/250 ML-D5W 250 ML IVPB SCH (00:26)
[2024-03-09 02:57] LABS: HBsAg Index 0.35 S/CO (0-0.99); Hep B Core Total Ab NONREACTIVE (NonReactive); Hep B Surf Ag NONREACTIVE S/CO (NonReactive); Hep C IgG Ab NONREACTIVE S/CO (NonReactive)
[2024-03-09 04:21] LABS: #Basophils Less than 0.03 10x3/uL (0.0-0.2); %Basophils 0.1 % (0.0-1.0); %Eosinophils 3.6 % (0.0-10.0); %Monocytes 10.1 % (0.0-10.0); %Neutrophils 74.5 % (42.0-75.0); Hematocrit 23.1 % (36.0-47.0); Hemoglobin 7.8 g/dL (12.0-16.0); Mean Corpuscular HGB CONC 33.8 g/dL (32.0-36.0); Mean Corpuscular Hemoglobin 32.1 pg (27.0-31.0); Mean Corpuscular Volume 95.1 fL (78.0-98.0); Mean Platelet Volume 10.1 fL (7.4-10.4); Platelet Count 44 10x3/uL (130-400); RBC Distribution Width 20.5 % (11.5-14.5); Red Blood Cell (RBC) Count 2.43 mill/uL (4.20-5.40)
[2024-03-09 04:30] LABS: Anion Gap 19 mmol/L (10-20); BUN (Urea Nitrogen) 40 mg/dL (7.0-18.7); Calc. Creatinine Clearance 13 mL/min (70-130); Calcium 8.7 mg/dL (7.8-10.44); Carbon Dioxide 20 mmol/L (22-29); Chloride 92 mmol/L (98-107); Estimated GFR 5; Glucose 172 mg/dL (70-105); Magnesium 1.9 mg/dL (1.6-2.6); Phosphorus 7.5 mg/dL (2.3-4.7); Potassium 4.4 mmol/L (3.5-5.1); Sodium 127 mmol/L (136-145)
[2024-03-09 04:32] LABS: INR-International Normal Ratio 2.6; Prothrombin Time 27.6 sec (12.0-14.7)
[2024-03-09 05:12] LABS: Bilirubin, Total 35.3 mg/dL (0.2-1.2)
[2024-03-09 05:21] LABS: ALT (SGPT) 19 U/L (8-55); AST (SGOT) 61 U/L (5-34); Albumin 3.5 g/dL (3.5-5.0); Alkaline Phosphatase 78 U/L (40-110); Bilirubin, Direct Greater than 15.0 mg/dL (0.1-0.3); Protein, Total 7.1 g/dL (6.0-8.3)
[2024-03-09] MEDS ORDERED: Lidocaine 1% w/Epinephrine 1:100K 20 ML VIAL ONE (09:36)
[2024-03-09] MEDS ORDERED: Lidocaine 1% PF 5 ML VIAL ONE (09:36)
[2024-03-09] MEDS ORDERED: Sodium Bicarbonate 2.5 MEQ/5 ML SDV ONE (09:36)
[2024-03-09] MEDS ORDERED: Heparin 10,000 UNITS/ 10 ML VIAL ONE (10:37)
[2024-03-09 10:51] LABS: D-Dimer Test 11.29 mcg/mL (0.27-0.43)
[2024-03-09 13:10] LABS: RBC Count-Automated (BF) 2145 /cu.mm; WBC/Nucleated-Auto (BF) 34 /cu.mm
[2024-03-09 13:45] LABS: BF Color Yellow; Body Fluid Source Paracentesis Fluid; Clarity Clear (Clear); Tube # EDTA
[2024-03-09 13:50] LABS: BF Segmented Neutrophils 90 %; Lymphocytes 10 %
[2024-03-09 14:12] LABS: ANA Symphony (Qualitative) POSITIVE (Negative); CENP IgG Antibody 1.2 EliAU/mL (<7 Negative); EliA Vaculitis New Method **** NEW METHOD ****; Jo-1 IgG Antibody 0.4 EliAU/mL (<7 Negative); Mitochondrial Ab 1.5 U/mL (<4 Negative); RNP70 IgG Antibody 3.6 EliAU/mL (<7 Negative); SSA/Ro IgG Antibody Greater than 240.0 EliAU/mL (<7 Negative); SSB/La IgG Antibody 0.5 EliAU/mL (<7 Negative); Scleroderma-70 IgG Antibody 0.7 EliAU/mL (<7 Negative); Smith D IgG Antibody 1.4 EliAU/mL (<7 Negative)
[2024-03-09] MEDS: Cefepime 1 GM in Sodium Chloride 0.9% 100 ML IVPB SCH (16:32)
[2024-03-09 20:55] VITALS: BMI 53.4
[2024-03-10 05:05] LABS: #Basophils 0.03 10x3/uL (0.0-0.2); %Basophils 0.3 % (0.0-1.0); %Eosinophils 4.2 % (0.0-10.0); %Lymphocytes 13.2 % (21.0-51.0); %Monocytes 13.6 % (0.0-10.0); %Neutrophils 67.5 % (42.0-75.0); Hematocrit 22.4 % (36.0-47.0); Hemoglobin 7.6 g/dL (12.0-16.0); Mean Corpuscular HGB CONC 33.9 g/dL (32.0-36.0); Mean Corpuscular Hemoglobin 32.6 pg (27.0-31.0); Mean Corpuscular Volume 96.1 fL (78.0-98.0); Mean Platelet Volume 10.2 fL (7.4-10.4); Platelet Count 50 10x3/uL (130-400); RBC Distribution Width 21.2 % (11.5-14.5); Red Blood Cell (RBC) Count 2.33 mill/uL (4.20-5.40)
[2024-03-10 05:55] LABS: BUN (Urea Nitrogen) 30 mg/dL (7.0-18.7)
[2024-03-10 06:54] LABS: Bilirubin, Total 37.7 mg/dL (0.2-1.2)
[2024-03-10 06:58] LABS: ALT (SGPT) 18 U/L (8-55); AST (SGOT) 61 U/L (5-34); Alkaline Phosphatase 81 U/L (40-110); Anion Gap 16 mmol/L (10-20); Calc. Creatinine Clearance 17 mL/min (70-130); Calcium 8.3 mg/dL (7.8-10.44); Carbon Dioxide 24 mmol/L (22-29); Chloride 94 mmol/L (98-107); Estimated GFR 6; Glucose 129 mg/dL (70-105); Potassium 3.9 mmol/L (3.5-5.1); Protein, Total 6.6 g/dL (6.0-8.3); Sodium 130 mmol/L (136-145)
[2024-03-10 07:35] LABS: Bilirubin, Direct 20.7 mg/dL (0.1-0.3)
[2024-03-10] MEDS ORDERED: Heparin 10,000 UNITS/ 10 ML VIAL ONE (10:41)
[2024-03-10 15:35] LABS: INR-International Normal Ratio 5.6; Prothrombin Time 51.1 sec (12.0-14.7)
[2024-03-10 15:36] LABS: PTT 70.9 sec (22.9-36.1)
[2024-03-10] MEDS: prednisoLONE 10 MG ODT TAB PO SCH (15:49)
[2024-03-10] MEDS: prednisoLONE 15 MG/5 ML UDCUP PO SCH (15:51)
[2024-03-10] MEDS: Rifaximin 550 MG TAB PO SCH (20:46)
[2024-03-11 06:26] LABS: Bilirubin, Total 34.5 mg/dL (0.2-1.2)
[2024-03-11 06:36] LABS: #Basophils Less than 0.03 10x3/uL (0.0-0.2); %Basophils 0.1 % (0.0-1.0); %Eosinophils 0.5 % (0.0-10.0); %Lymphocytes 4.5 % (21.0-51.0); %Monocytes 7.6 % (0.0-10.0); %Neutrophils 86.6 % (42.0-75.0); Hematocrit 24.5 % (36.0-47.0); Hemoglobin 8.1 g/dL (12.0-16.0); Mean Corpuscular HGB CONC 33.1 g/dL (32.0-36.0); Mean Corpuscular Hemoglobin 32.3 pg (27.0-31.0); Mean Corpuscular Volume 97.6 fL (78.0-98.0); Mean Platelet Volume 9.9 fL (7.4-10.4); Platelet Count 43 10x3/uL (130-400); RBC Distribution Width 21.2 % (11.5-14.5); Red Blood Cell (RBC) Count 2.51 mill/uL (4.20-5.40)
[2024-03-11 06:39] LABS: INR-International Normal Ratio 4.1; Prothrombin Time 40.3 sec (12.0-14.7)
[2024-03-11 06:40] LABS: PTT 61.9 sec (22.9-36.1)
[2024-03-11 06:53] LABS: ALT (SGPT) 18 U/L (8-55); AST (SGOT) 60 U/L (5-34); Alkaline Phosphatase 95 U/L (40-110); Anion Gap 18 mmol/L (10-20); BUN (Urea Nitrogen) 24 mg/dL (7.0-18.7); Bilirubin, Direct Greater than 15.0 mg/dL (0.1-0.3); Calc. Creatinine Clearance 18 mL/min (70-130); Calcium 8.7 mg/dL (7.8-10.44); Carbon Dioxide 24 mmol/L (22-29); Chloride 95 mmol/L (98-107); Estimated GFR 7; Glucose 121 mg/dL (70-105); Potassium 4.8 mmol/L (3.5-5.1); Sodium 132 mmol/L (136-145)
[2024-03-11] MEDS ORDERED: prednisoLONE 10 MG ODT TAB PO SCH (09:00)
[2024-03-11] MEDS: prednisoLONE 15 MG/5 ML UDCUP PO SCH (09:02)
[2024-03-11 12:31] VITALS: TEMP 98.8
== END 2024-03-11 09:35 | disposition short-term general hospital (02) | DRG 871 ==
LOC: ERS 01:44 → ERHOLD 06:13 → CCU 07:55
PROVIDERS: ADMIT Internal Medicine; ATTEND Internal Medicine
PROC: 30233K1 Transfusion of Nonautologous Frozen Plasma into Peripheral Vein, Percutaneous Approach (ICD-10-PCS; 2024-03-07)
PROC: 30233J1 Transfusion of Nonautologous Serum Albumin into Peripheral Vein, Percutaneous Approach (ICD-10-PCS; 2024-03-07)
PROC: 30233N1 Transfusion of Nonautologous Red Blood Cells into Peripheral Vein, Percutaneous Approach (ICD-10-PCS; principal; 2024-03-08)
PROC: 30233S1 Transfusion of Nonautologous Globulin into Peripheral Vein, Percutaneous Approach (ICD-10-PCS; 2024-03-08)
PROC: 0W9G3ZZ Drainage of Peritoneal Cavity, Percutaneous Approach (ICD-10-PCS; 2024-03-09)
PROC: 06HY33Z Insertion of Infusion Device into Lower Vein, Percutaneous Approach (ICD-10-PCS; 2024-03-09)
DX: A41.9 Sepsis, unspecified organism (principal); I21.A1 Myocardial infarction type 2; K76.7 Hepatorenal syndrome; R57.8 Other shock; K65.2 Spontaneous bacterial peritonitis; N17.9 Acute kidney failure, unspecified; D68.9 Coagulation defect, unspecified; J90 Pleural effusion, not elsewhere classified; Z68.43 Body mass index [BMI] 50.0-59.9, adult; K76.6 Portal hypertension; E87.1 Hypo-osmolality and hyponatremia; E87.20 Acidosis, unspecified; D62 Acute posthemorrhagic anemia; G93.40 Encephalopathy, unspecified; Z51.5 Encounter for palliative care; I12.9 Hypertensive chronic kidney disease with stage 1 through stage 4 chronic kidney disease, or unspecified chronic kidney disease; D63.1 Anemia in chronic kidney disease; K70.31 Alcoholic cirrhosis of liver with ascites; K80.20 Calculus of gallbladder without cholecystitis without obstruction; K59.09 Other constipation; D69.6 Thrombocytopenia, unspecified; E66.01 Morbid (severe) obesity due to excess calories; Z88.5 Allergy status to narcotic agent
CPT/HCPCS: 36415; 36416; 36430; 49083; 51702; 71045; 74176; 80048; 80053; 80074; 80076; 80307; 81001; 82042; 82390; 82550; 83516; 83605; 83690; 83735; 83930; 83935; 84100; 84157; 84300; 84484; 84703; 85025; 85046; 85060; 85379; 85384; 85610; 85730; 86015; 86038; 86225; 86235; 86704; 86706; 86803; 86850; 86900; 86901; 87040; 87070; 87205; 87340; 89051; 90935; 93005; 96365; 96366; 96367; 96375; G0257; J0692; J0696; J1644; J1940; J2272; J2354; J2405; J2470; J3010; J7042; J7050; J7070; J7510; P9016; P9047; P9059; Q5105